=== PATIENT | male | born 1965 ===

== ENCOUNTER 2023-02-08 08:12 | Outpatient (CLI) | payer OTHER | END 2023-02-08 08:13 | disposition home or self-care (01) | LOC: ULT 08:12 | PROVIDERS: ATTEND Chiropractor | DX: I73.9 Peripheral vascular disease, unspecified (principal) | CPT/HCPCS: 93922 ==

== ENCOUNTER 2025-03-16 15:38 | Emergency (ER) | payer MEDICARE, OTHER ==
[2025-03-16] MEDS ORDERED: Acetaminophen 500 MG TAB ONE (17:07)
[2025-03-16 17:09] LABS: #Basophils Less than 0.03 10x3/uL (0.0-0.2); #Eosinophils 0.20 10x3/uL (0.0-0.7); #Monocytes 0.98 10x3/uL (0.11-0.59); #Neutrophils 2.69 10x3/uL (1.40-6.50); %Basophils 0.4 % (0.0-1.0); %Eosinophils 3.9 % (0.0-10.0); %Lymphocytes 23.7 % (21.0-51.0); %Monocytes 19.2 % (0.0-10.0); %Neutrophils 52.6 % (42.0-75.0); Hematocrit 35.1 % (42.0-52.0); Hemoglobin 11.5 g/dL (14.0-18.0); Mean Corpuscular Hemoglobin 34.8 pg (27.0-31.0); Mean Corpuscular Volume 106.4 fL (78.0-98.0); Platelet Count 167 10x3/uL (130-400); Red Blood Cell (RBC) Count 3.30 mill/uL (4.70-6.10); White Blood Cell (WBC) Count 5.11 10x3/uL (4.8-10.8)
[2025-03-16 17:30] LABS: ALT (SGPT) 42 U/L (Less than 45); AST (SGOT) 45 U/L (11-34); Albumin 4.2 g/dL (3.1-4.5); Alkaline Phosphatase 224 U/L (40-110); Anion Gap 18 mmol/L (10-20); BUN (Urea Nitrogen) 23 mg/dL (8.4-25.7); Bilirubin, Total 0.6 mg/dL (0.3-1.2); Calc. Creatinine Clearance 0 mL/min (70-130); Calcium 10.2 mg/dL (7.8-10.44); Carbon Dioxide 30 mmol/L (22-29); Chloride 98 mmol/L (98-107); Globulin 4.4 g/dL (2.4-3.5); Glucose 90 mg/dL (70-105); Potassium 5.5 mmol/L (3.5-5.1); Sodium 140 mmol/L (136-145)
== END 2025-03-16 18:45 | disposition home or self-care (01) ==
LOC: ERS 15:38
DX: M79.602 Pain in left arm (principal); E87.5 Hyperkalemia; Z55.6 Problems related to health literacy
CPT/HCPCS: 36415; 80053; 85025; 93005; 99284